=== PATIENT | male | born 1980 | race Caucasian/White ===

== ENCOUNTER 2016-11-13 16:16 | Emergency (ER) | payer BC ==
[2016-11-13 17:03] VITALS: BP 130/90
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
== END 2016-11-13 17:37 | disposition home or self-care (01) ==
LOC: UCCORT 16:16
DX: K04.7 Periapical abscess without sinus (principal); F17.210 Nicotine dependence, cigarettes, uncomplicated
CPT/HCPCS: 99212; G0463

== ENCOUNTER 2016-11-14 13:25 | Emergency (ER) | payer BC ==
[2016-11-14] MEDS ORDERED: cefTRIAXone VIAL(*) 1,000 MG VIAL IM ONE (16:52)
[2016-11-14] MEDS ORDERED: Acetaminophen TAB* 325 MG PO ONE (16:52)
[2016-11-14] MEDS ORDERED: Lidocaine 2% VISCOUS* 15 ML UDC PO ONE (16:54)
[2016-11-14] MEDS ORDERED: Lidocaine 1%* 5 ML VIAL ONE (16:55)
--- NOTE | 2016-11-14 16:57 | UC ---
Dental HPI - HPI Summary HPI Summary: pt presents with c/o of increased dental pain and swelling. Pt was seen last night here at [facility] and given PCN and hydrocodone. Pt woke this morning with significant swelling, pain and fever. Pt has an appointment with dentist tomorrow. - History of Current Complaint Hx Obtained From: Patient Onset/Duration: Sudden Onset, Lasting Hours Severity: Moderate Aggravating: Heat, Cold, Chewing Alleviating: Nothing Related History: Previous Dental Care on Same Tooth, Discharge, Swelling <Razia Cox NP - Last Filed: 11/14/16 16:48> <Krystyna Hammond - Last Filed: 11/14/16 17:26> - History of Current Complaint Chief Complaint: UCDentalProblem Stated Complaint: SWOLLEN FACE-SEEN 11/13-BAD TOOTH Time Seen by Provider: 11/14/16 16:35 - Allergies/Home Medications Allergies/Adverse Reactions: Allergies Allergy/AdvReac Type Severity Reaction Status Date / Time No Known Allergies Allergy Verified 11/14/16 16:41 PMH/Surg Hx/FS Hx/Imm Hx Previously Healthy: No - dental abscess - Surgical History Surgical History: Yes Surgery Procedure, Year, and Place: collapsed lung- 1998. tubes in ears. - Family History Known Family History: Positive: Cardiac Disease Family History: family history of HTN, CAd no DM - Social History Lives: With Family Alcohol Use: None Substance Use Type: None Smoking Status (MU): Heavy Every Day Tobacco Smoker Type: Cigarettes Amount Used/How Often: 1 PPD Have You Smoked in the Last Year: Yes - Immunization History Most Recent Influenza Vaccination: NEVER Most Recent Tetanus Shot: 3 YEARS AGO <Razia Cox NP - Last Filed: 11/14/16 16:48> Review of Systems Constitutional: Fever Skin: Negative Eyes: Negative ENT: Dental Pain - right side dental swelling Respiratory: Negative Cardiovascular: Negative Gastrointestinal: Negative Genitourinary: Negative Motor: Negative Neurovascular: Negative Musculoskeletal: Negative Neurological: Negative Psychological: Negative All Other Systems Reviewed And Are Negative: Yes <Razia Cox NP - Last Filed: 11/14/16 16:48> Physical Exam Triage Information Reviewed: Yes Appearance: Ill-Appearing, Pain Distress Vital Signs: Initial Vital Signs Temp 100.1 F 11/14/16 16:38 Pulse 64 11/14/16 16:38 Resp 18 11/14/16 16:38 BP 165/92 11/14/16 16:38 Pulse Ox 98 11/14/16 16:38 Vital Signs Reviewed: Yes Dental Exam: Other Dental: Positive: Gross Decay/Caries @, Abscess @, Other: - singnificant swelling, tenderness and pururlent drainage right side upper jaw Neck exam: Normal Respiratory Exam: Normal Cardiovascular Exam: Normal Musculoskeletal Exam: Normal Neurological Exam: Normal Psychological Exam: Normal Skin Exam: Normal <Razia Cox NP - Last Filed: 11/14/16 16:48> Vital Signs: Initial Vital Signs Temp 100.1 F 11/14/16 16:38 Pulse 64 11/14/16 16:38 Resp 18 11/14/16 16:38 BP 165/92 11/14/16 16:38 Pulse Ox 98 11/14/16 16:38 <Krystyna Hammond - Last Filed: 11/14/16 17:26> Dental Complaint Course/Dx - Differential Dx/Diagnosis Differential Diagnosis/Dx: Dental Abscess, Dental Caries, Fractured Tooth Provider Diagnoses: dental abscess. dental caries <Razia Cox NP Last Filed: 11/14/16 16:48> - Course Course Of Treatment: Dr. Hammond called to the room at 1705 when pt had a vasovagal reaction to the shot. Pt did not lose consciousness, did not fall to the ground. Nurse held him up and I assisted. Pt became diaphoretic and vomited undigested food approx 200 cc. Denied chest pain or SOB or any new or worsening symptoms. Pt feels normal again at 5:25 pm and feels ready to go. Repeat vitals are stable. - Differential Dx/Diagnosis Provider Diagnoses: vasovagal episode after injection <Krystyna Hammond Last Filed: 11/14/16 17:26> Discharge <Razia Cox NP Last Filed: 11/14/16 16:48> <Krystyna Hammond Last Filed: 11/14/16 17:26> - Discharge Plan Condition: Stable Disposition: HOME Prescriptions: Clindamycin CAP* [Cleocin 150 MG CAP*] 150 mg PO Q6H #80 cap Patient Education Materials: Dental Abscess (ED) Referrals: No Primary Care Phys,NOPCP [Primary Care Provider] - Additional Instructions: follow up with your dentist as scheduled. Stop the penicillin and start the clindamycin tomorrow as directed You were given ceftriaxone 1gm injectable to treat the infection and then zofran 8 mg ODT to help with vomiting.
[2016-11-14] MEDS ORDERED: Ondansetron ODT TAB* 4 MG PO ONE (17:14)
[2016-11-14 17:26] VITALS: BP 137/92
== END 2016-11-14 17:48 | disposition home or self-care (01) ==
LOC: UCCORT 13:25
DX: K04.7 Periapical abscess without sinus (principal); K02.9 Dental caries, unspecified; F17.210 Nicotine dependence, cigarettes, uncomplicated
CPT/HCPCS: 96372; 99212; A9270-GY; G0463; J0696

== ENCOUNTER 2017-06-21 13:17 | Emergency (ER) | payer BC ==
[2017-06-21 15:30] VITALS: BP 157/94
[2017-06-21] MEDS ORDERED: Fluorescein Sodium TOPICAL* 1 MG TEST ONE (15:34)
[2017-06-21] MEDS ORDERED: BSS OPTH.SOL* BTL ONE (15:34)
[2017-06-21] MEDS ORDERED: Tetracaine 0.5% OPTH.SOL 4 ML* 1 DROP BTL ONE (15:34)
[2017-06-21] MEDS ORDERED: Tetracaine 0.5% OPTH.SOL 4 ML* 1 DROP BTL RIGHT EYE ONE (15:39)
[2017-06-21] MEDS ORDERED: Fluorescein Sodium TOPICAL* 1 MG TEST OPHTHALMIC ONE (15:40)
--- NOTE | 2017-06-21 15:44 | UC ---
Eye Complaint HPI - History of Current Complaint Chief Complaint: MARIA DEye Stated Complaint: RIGHT EYE IRRITATION Time Seen by Provider: 06/21/17 15:37 Hx Obtained From: Patient Onset/Duration: Sudden Onset - concrete dust into the right eye yesterday with jackhammer. Used safety glasses. Came down into the eye with sweat., Still Present Severity Initially: Moderate Severity Currently: Mild Location of Injury: Eye Lid (lower) Character: Foreign Body Sensation Aggravating Factor(s): Blinking - really hard. Associated Signs And Symptoms: Positive: Drainage (Purulent) - Risk Factors Penetrating Injury Risk Factor: Hammering - cherry hammer Acute Glaucoma Risk Factors: Negative Optic Artery Occlusion Risk Factors: Negative - Allergies/Home Medications Allergies/Adverse Reactions: Allergies Allergy/AdvReac Type Severity Reaction Status Date / Time No Known Allergies Allergy Verified 06/21/17 15:30 PMH/Surg Hx/FS Hx/Imm Hx Previously Healthy: Yes - Surgical History Surgical History: Yes Surgery Procedure, Year, and Place: collapsed lung- 1998. tubes in ears. - Family History Known Family History: Positive: Cardiac Disease, Hypertension, Diabetes Family History: family history of HTN, CAd no DM - Social History Occupation: Employed Full-time Lives: With Family Alcohol Use: None Substance Use Type: None Smoking Status (MU): Heavy Every Day Tobacco Smoker Type: Cigarettes Amount Used/How Often: 1 PPD Have You Smoked in the Last Year: Yes Cessation Counseling: Patient Advised to Stop - Immunization History Most Recent Influenza Vaccination: NEVER Most Recent Tetanus Shot: 3 YEARS AGO Review of Systems Eyes: Drainage, Eye Redness All Other Systems Reviewed And Are Negative: Yes Physical Exam Triage Information Reviewed: Yes Appearance: No Pain Distress, Well-Nourished Vital Signs: Initial Vital Signs Temp 99.2 F 06/21/17 15:26 Pulse 73 06/21/17 15:26 Resp 16 06/21/17 15:26 BP 157/94 06/21/17 15:26 Pulse Ox 100 06/21/17 15:26 Vital Signs Reviewed: Yes Eyes: Positive: Conjunctiva Inflamed - OD. Fluorescein positive in the conjunctiva right lower lateral eye., Discharge - some thick discharge. ENT: Positive: Pharynx normal, TMs normal Neck exam: Normal Respiratory Exam: Normal Cardiovascular Exam: Normal Musculoskeletal Exam: Normal Neurological Exam: Normal Psychological Exam: Normal Skin Exam: Normal - Additional Comments Eye numbed with tetracaine and fluorescein testing done. No FB seen. Upper lid inverted. Eye Complaint Course/Dx - Differential Dx/Diagnosis Differential Diagnosis/HQI/PQRI: Conjunctivitis, Corneal Abrasion, Foreign Body Provider Diagnoses: conjunctival abrasion right eye Discharge - Discharge Plan Condition: Stable Disposition: HOME Prescriptions: Erythromycin OPTH OINT* [Erythromycin 0.5% OPTH OINT*] 0.25 inch RIGHT EYE TID # 3.5 gm Patient Education Materials: Eye Foreign Body (ED), Erythromycin (Into the eye) Referrals: No Primary Care Phys,NOPCP [Primary Care Provider] - Reginald Estrada MD [Medical Doctor] - 2 Days (If the eye is not better by Friday ) Additional Instructions: Eye Complaint HPI - History of Current Complaint Chief Complaint: UCEye Stated Complaint: RIGHT EYE IRRITATION Time Seen by Provider: 06/21/17 15:37 Hx Obtained From: Patient Onset/Duration: Sudden Onset - concrete dust into the right eye yesterday with jackhammer. Used safety glasses. Came down into the eye with sweat., Still Present Severity Initially: Moderate Severity Currently: Mild Location of Injury: Eye Lid (lower) Character: Foreign Body Sensation Aggravating Factor(s): Blinking - really hard. Associated Signs And Symptoms: Positive: Drainage (Purulent) - Risk Factors Penetrating Injury Risk Factor: Hammering - cherry hammer Acute Glaucoma Risk Factors: Negative Optic Artery Occlusion Risk Factors: Negative - Allergies/Home Medications Allergies/Adverse Reactions: Allergies Allergy/AdvReac Type Severity Reaction Status Date / Time No Known Allergies Allergy Verified 06/21/17 15:30 PMH/Surg Hx/FS Hx/Imm Hx Previously Healthy: Yes - Surgical History Surgical History: Yes Surgery Procedure, Year, and Place: collapsed lung- 1998. tubes in ears. - Family History Known Family History: Positive: Cardiac Disease, Hypertension, Diabetes Family History: family history of HTN, CAd no DM - Social History Occupation: Employed Full-time Lives: With Family Alcohol Use: None Substance Use Type: None Smoking Status (MU): Heavy Every Day Tobacco Smoker Type: Cigarettes Amount Used/How Often: 1 PPD Have You Smoked in the Last Year: Yes Cessation Counseling: Patient Advised to Stop - Immunization History Most Recent Influenza Vaccination: NEVER Most Recent Tetanus Shot: 3 YEARS AGO Physical Exam Vital Signs: Initial Vital Signs Temp 99.2 F 06/21/17 15:26 Pulse 73 06/21/17 15:26 Resp 16 06/21/17 15:26 BP 157/94 06/21/17 15:26 Pulse Ox 100 06/21/17 15:26 Smoking Cessation Tricks. 1. Cut down by 1 cigarette per day every 2 days. Write the number of smokes for that day on the calendar. 2. Identify triggers to smoking: after meals, on the phone, in the car, with coffee, on breaks at work, etc. 3. Formulate a plan with a behavior to replace the smoking. Fireballs in the car , doodle pad on the phone, flavored creamer for the coffee, go for a walk after a meal or on break at work. 4. For stress smokes do deep breathing relaxation. Breath deep in through the nose hold the breath in for a few seconds then breath out slowly through the mouth. EYE OINTMENT USE: Wash hands. Place 1/4" strip across tip of finger. Pull lower lid down with the index finger and stabilize the ointment finger with the middle finger and scrape the ointment off on the lid. Pull the lid out and let go as you look down.
== END 2017-06-21 16:20 | disposition home or self-care (01) ==
LOC: UCCORT 13:17
DX: S05.01XA Injury of conjunctiva and corneal abrasion without foreign body, right eye, initial encounter (principal); X58.XXXA Exposure to other specified factors, initial encounter; Y93.89 Activity, other specified; Y92.9 Unspecified place or not applicable; F17.210 Nicotine dependence, cigarettes, uncomplicated
CPT/HCPCS: 99212; A9270-GY; G0463

== ENCOUNTER 2018-08-15 08:44 | Emergency (ER) | payer BC ==
[2018-08-15 09:17] VITALS: BP 152/110
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
== END 2018-08-15 10:35 | disposition home or self-care (01) ==
LOC: UCCORT 08:44
DX: R10.13 Epigastric pain (principal); F17.210 Nicotine dependence, cigarettes, uncomplicated
CPT/HCPCS: 99212; G0463

== ENCOUNTER 2018-09-01 08:44 | Emergency (ER) | payer BC ==
[2018-09-01 08:58] VITALS: BP 159/99
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
== END 2018-09-01 09:05 | disposition home or self-care (01) ==
LOC: UCCORT 08:44
DX: L02.414 Cutaneous abscess of left upper limb (principal); R03.0 Elevated blood-pressure reading, without diagnosis of hypertension; F17.210 Nicotine dependence, cigarettes, uncomplicated
CPT/HCPCS: 99212; G0463